=== PATIENT | female | born 1995 | race American Indian/Alaskan Native ===

== ENCOUNTER 2018-05-18 16:24 | Inpatient (IN) | payer MEDICAID ==
--- NOTE | 2018-05-18 18:35 | Ultrasound Report ---
FINAL REPORT PROCEDURE: Limited obstetrical ultrasound. TECHNIQUE: Real-time limited sonographic examination was performed for evaluation of size, position, heartbeat, fluid volume for each fetus with image documentation (1 or more fetuses). CPT 18711 HISTORY: , evaluate amniotic fluid index. COMPARISON: No prior studies are available for comparison. FINDINGS: There is a single viable fetus. Cardiac activity is demonstrated at 135 beats per minute. The amniotic fluid index measures 8.6 centimeters. IMPRESSION: 8.6 centimeter amniotic fluid index.
--- NOTE | 2018-05-18 18:36 | Ultrasound Report ---
FINAL REPORT PROCEDURE: Ultrasound biophysical profile without nonstress test. TECHNIQUE: Sonographic evaluation for breathing, movement, tone, and amniotic fluid volume was performed. CPT 78168 HISTORY: , evaluate biophysical profile. COMPARISON: No prior studies are available for comparison. FINDINGS: Amniotic fluid volume: 2. breathin. movement: 2. tone: 2. Score: 8 of 8. IMPRESSION: Normal biophysical profile.
[2018-05-18] MEDS ORDERED: LACTATED RINGERS 1,000 ML ONE (19:58)
[2018-05-18] MEDS ORDERED: BRETHINE SUB-Q PRN (20:17)
[2018-05-18] MEDS ORDERED: XYLOCAINE 2% INFILTRATI ONE (20:17)
[2018-05-18] MEDS: LACTATED RINGERS 1,000 ML IV SCH (20:28)
--- NOTE | 2018-05-18 20:35 | History and Physical Report ---
History of Present Illness Date of examination: 05/18/18 Date of admission: 05/18/18 19:26 Chief complaint: Here for induction of labor due to class 3 obesity. History of present illness: 23 year old presents to L&D for induction of labor due to obesity. Patient has received care at [facility] and co- managed with [facility]. LMP 08/17/17. EDC 05/24/18 (based on LMP and confirmed by 12 week US). EGA 39 weeks, 1 day gestation. significant for obesity, UTI (treated with Macrobid), Vitamin D deficiency (supplemented with Vitamin D), and marginal cord insertion. labs are as follows: A+, antibody screen negative, rubella immune, RPR nonreactive, hepatitis B surface antigen negative, HIV negative, hemoglobin electrophoresis normal, chlamydia negative, gonorrhea negative, HSV 2 negative, GBS negative. Past History Past Medical History: other (obesity) Past Surgical History: other (elective ) ASSESSMENT CONSULTANT History: denies: cancer, chlamydia, fibroids, gonorrhea, hepatitis B, hepatitis C, herpes, HIV, syphilis Family/Genetic History: none Social history: single, lives with family, full code. denies: smoking, alcohol abuse, prescription drug abuse, IV drug use - Obstetrical History Expected Date of Delivery: 05/24/18 Actual Gestation: 39 Week(s) 1 Day(s) : 2 Para: 0 Hx # Term Pregnancies: 0 Number of Pregnancies: 0 Spontaneous Abortions: 0 Induced : 1 Number of Living Children: 0 Medications and Allergies Allergies Allergy/AdvReac Type Severity Reaction Status Date / Time No Known Allergies Allergy Unverified 05/18/18 16:40 Home Medications Medication Instructions Recorded Confirmed Last Taken Type Pnv No.121/Iron/Folic Acid 1 tab PO QDAY 05/18/18 05/18/18 2 Days Ago History [ Multivitamin Tablet] ~05/16/18 Active Meds: Active Medications Dinoprostone (Cervidil) 10 mg VG ONCE ONE Stop: 05/18/18 21:18 Ephedrine Sulfate (Ephedrine Sulfate) 10 mg IV Q2M PRN PRN Reason: Hypotension Lactated Ringer's (Lactated Ringers) 1,000 mls @ 125 mls/hr IV DIRECT YANDEL Oxytocin/Sodium Chloride (Pitocin/Ns 20 Unit/1000ml ip) 20 units in 1,000 mls @ 125 mls/hr IV DIRECT YANDEL Lidocaine (Xylocaine 2%) 20 ml INFILTRATI ONCE ONE Stop: 05/18/18 20:18 Terbutaline Sulfate (Brethine) 0.25 mg SUB-Q ONCE PRN PRN Reason: Hyperstimulation/Hypertonicity Review of Systems All systems: negative (induction of labor for obesity) - Vital Signs Vital signs: Vital Signs Temp Pulse Resp BP 97.8 F 82 18 132/76 05/18/18 17:55 05/18/18 17:55 05/18/18 17:55 05/18/18 17:55 Temp Pulse Resp BP Pulse Ox 98.3 F 87 20 137/76 97 05/18/18 19:23 05/18/18 19:25 05/18/18 19:23 05/18/18 19:24 05/18/18 19:25 - Physical Exam Cardiovascular: Regular rate, Normal S1, Normal S2 Lungs: Positive: Clear to auscultation Abdomen: Positive: normal appearance, soft. Negative: distention, tenderness, guarding, rigidity Genitourinary (Female): Positive: normal external genitalia, normal perenium, other (Several small condyloma noted bilaterally on vulva; no ulcers, no blisters noted on careful exam with bright light upon admission) Vagina: Positive: normal moisture Uterus: Positive: enlarged. Negative: tender Anus/Rectum: Positive: normal perianal skin Extremities: Positive: normal - Obstetrical FHR: category 2 Uterine Contraction Monitor Mode: External Cervical Dilatation: 1 Cervical Effacement Percentage: 70 station: -2 Uterine Contraction Pattern: Absent Results All other labs normal. Assessment and Plan A: at 39 weeks, 1 day gestation. Obesity. GBS negative. P: Admit. Cervidil cervical ripening, followed by Pitocin induction of labor. Discussed with patient risks and benefits of Cervidil cervical ripening and Pitocin induction of labor. Patient consented to Cervidil cervical ripening and Pitocin induction of labor.
[2018-05-18] MEDS ORDERED: PITOCin/NS 20 UNIT/1000ML DRIP 20 UNITS/1,000 ML BAG IV SCH (21:00)
[2018-05-18] MEDS ORDERED: CERVIDIL VG ONE (21:17)
[2018-05-18 21:26] LABS: Hematocrit 32.2 % (30.3-42.9); Hemoglobin 10.8 gm/dl (10.1-14.3); Mean Corpuscular HGB Conc 34 % (30-34); Mean Corpuscular Hemoglobin 26 pg (28-32); Mean Corpuscular Volume 77 fl (79-97); Platelet Count 314 K/mm3 (140-440); Red Blood Count 4.16 M/mm3 (3.65-5.03); Red Cell Distribution Width 15.4 % (13.2-15.2)
[2018-05-18 22:05] LABS: Alanine Aminotransferase 18 units/L (7-56); Albumin 3.3 g/dL (3.9-5); BUN/Creatinine Ratio 15; Blood Urea Nitrogen 6 mg/dL (7-17); Calcium 8.8 mg/dL (8.4-10.2); Hemolysis Index 10
[2018-05-18 23:40] LABS: Amorphous Crystals,Urine Few; Bilirubin,Urine NEG (Negative); Blood,Urine MOD (Negative); Color,Urine Yellow (Yellow); Mucus,Urine 3+ /HPF; Urobilinogen,Urine < 2.0 mg/dL (<2.0)
[2018-05-19] MEDS: LACTATED RINGERS 1,000 ML IV SCH ×3 (04:08→13:50)
[2018-05-19] MEDS ORDERED: PITOCin/NS 30 UNIT/500ML 30 UNITS/500 ML BAG IV SCH (11:00)
--- NOTE | 2018-05-19 11:03 | Event Note ---
Date: 05/19/18 Patient received Cervidil for cervical ripening overnight. Pt. is being induced at 39 weeks, 2 days gestation due to morbid obesity. Cervidil has been removed and cervix is 3 cm dilated per RN. Pitocin orders put in; plan to start Pitocin at 11:30 AM. Continuous EFM.
--- NOTE | 2018-05-19 12:51 | Event Note ---
Date: 05/19/18 E [id number]/-1.
[2018-05-19] MEDS ORDERED: SUBLIMAZE IV PRN (13:21)
[2018-05-19] MEDS ORDERED: SUBLIMAZE ONE (13:28)
[2018-05-19] MEDS ORDERED: NARCAN 2 MG/2 ML IV PRN (14:25)
[2018-05-19] MEDS ORDERED: fentaNYL-BUPIV 2 MCG/ML-0.125% 200 MCG/100 ML BAG EPIDURAL SCH (15:00)
--- NOTE | 2018-05-19 17:11 | Procedure Note ---
OB Delivery Note - Delivery Date of Delivery: 05/19/18 Surgeon: DWIGHT CABRERA Training And Development Director: JOSIE HERRERA Estimated blood loss: other (250 cc) - Vaginal Delivery presentation: vertex Delivery position: OA Intrapartum events: mult.variable deceleratio Delivery induction: AROM Delivery monitor: external FHT, external uterine Route of delivery: vacuum extraction Indicators for instrumentation: nonreassuring FHR tracing Delivery placenta: spontaneous Delivery cord: 3 umbilical vessels Episiotomy: none Delivery laceration: none Anesthesia: epidural Delivery comments: Vacuum assisted vaginal delivery performed by Dr. Irena Cabrera of liveborn male infant weighing 7 lb. 15 oz. over intact perineum with apgars of 8/9. Patient had urge to push but was not pushing effectively. FHR tracing showed deep variable FHR decelerations. Dr. Cabrera came to patient's room to expedite delivery with Kiwi. NICU called to delivery to evaluate baby. Baby placed on maternal chest after delivery while 3 vessel cord was double clamped and cut. Baby was then taken to radiant warmer to be evaluated by NICU team. Spontaneous delivery of intact placenta and membranes by freeman mechanism. Pitocin to IV fluids after delivery of placenta. EBL 250 cc. Fundus firm and midline. No lacerations noted. Vaginal sweep negative. Sponge count correct. Sharps removed from table.
[2018-05-19] MEDS ORDERED: LANSINOH TP PRN (18:16)
[2018-05-19] MEDS ORDERED: TUCKS PAD TP PRN (18:16)
[2018-05-19] MEDS ORDERED: PHENERGAN PR PRN (18:16)
[2018-05-19] MEDS ORDERED: BENADRYL PO PRN (18:16)
[2018-05-19] MEDS ORDERED: NORCO 5/325 PO PRN (18:16)
[2018-05-19] MEDS ORDERED: SODIUM CHLORIDE FLUSH SYRINGE 10 ML IV NR (19:00)
[2018-05-19] MEDS: COLACE PO SCH (21:07)
[2018-05-19] MEDS: MOTRIN PO SCH (21:07)
[2018-05-20] MEDS: MOTRIN PO SCH ×4 (05:24→21:06)
[2018-05-20 05:57] LABS: Hematocrit 26.7 % (30.3-42.9)
[2018-05-20] MEDS ORDERED: BOOSTRIX IM ONE (06:00)
[2018-05-20] MEDS: COLACE PO SCH ×2 (10:43→22:28)
--- NOTE | 2018-05-20 14:25 | Progress Note ---
Assessment and Plan A: day 1 S/P VAVD. Anemia. P: Supplement with iron. Subjective - Subjective Date of service: 05/20/18 Principal diagnosis: day 1 S/P VAVD Interval history: day 1 S/P VAVD. Doing well. Patient reports a small amount of lochia. Patient is voiding without difficulty. she is ambulating well and tolerating a regular diet. Patient denies headache, cough, shortness of breath, chest pain, abdominal pain , leg pain, nausea or vomiting, heavy bleeding, or any other problems. Patient reports: appetite normal, voiding normally, pain well controlled, flatus , ambulating normally : doing well Objective - Vital Signs Latest vital signs: Vital Signs Temp Pulse Resp BP BP Pulse Ox 05/20/18 12:53 18 05/20/18 08:33 86 96 05/20/18 08:32 97.8 F 84 18 125/56 95 05/20/18 06:20 18 05/20/18 05:24 18 05/20/18 00:30 98.7 F 69 16 107/72 05/19/18 22:07 18 05/19/18 21:07 18 05/19/18 19:30 98.6 F 72 16 104/78 05/19/18 19:03 98.2 F 84 20 126/55 100 05/19/18 18:55 98.4 F 82 20 126/56 100 05/19/18 17:46 98 H 131/59 05/19/18 17:31 93 H 120/56 05/19/18 17:16 100 H 136/71 05/19/18 17:12 97 H 96 05/19/18 17:10 93 H 92 05/19/18 17:06 95 H 99 05/19/18 17:01 93 H 98 05/19/18 16:19 89 82 L 05/19/18 16:18 107 H 97 05/19/18 16:13 88 100 05/19/18 16:08 85 100 05/19/18 16:03 85 99 05/19/18 15:58 73 100 05/19/18 15:55 76 127/61 05/19/18 15:53 78 99 05/19/18 15:52 90 78 L 05/19/18 15:48 80 100 05/19/18 15:43 80 100 05/19/18 15:38 88 98 05/19/18 15:33 89 99 05/19/18 15:28 83 100 05/19/18 15:26 90 109/56 05/19/18 15:23 97 H 99 05/19/18 15:18 90 100 05/19/18 15:13 89 100 05/19/18 15:10 85 133/60 05/19/18 15:08 91 H 100 05/19/18 15:03 96 H 100 05/19/18 14:58 98 H 99 05/19/18 14:53 86 100 05/19/18 14:48 106 H 138/62 05/19/18 14:47 120 H 95 05/19/18 14:46 91 H 135/62 05/19/18 14:44 95 H 72 L 05/19/18 14:43 84 135/63 05/19/18 14:41 84 100 05/19/18 14:39 82 131/59 05/19/18 14:36 57 L 05/19/18 14:35 89 84 05/19/18 14:30 54 L 58 L Intake and Output 05/19/18 05/20/18 05/20/18 23:59 07:59 15:59 Intake Total 740 440 Output Total 500 Balance 240 440 Intake: Oral 200 200 Intake, Free Water 540 240 Output: Urine 500 Void 500 Other: Total, Intake Amount 200 200 Total, Output Amount 500 # Voids Void 1 Estimated Blood Loss 250 - Exam Cardiovascular: Present: Regular rate, Normal S1, Normal S2 Lungs: Present: Clear to auscultation Abdomen: Present: normal appearance, soft, normal bowel sounds. Absent: distention, tenderness, guarding, rigidity Uterus: Present: normal, firm, fundal height below umbilicus. Absent: bogginess , tenderness Extremities: Present: normal. Absent: tenderness, edema - Labs Labs: Abnormal lab results 05/20/18 Range/Units 05:41 Hgb 9.0 L (10.1-14.3) gm/dl Hct 26.7 L (30.3-42.9) %
[2018-05-20] MEDS: FEOSOL PO SCH ×2 (18:33→22:28)
[2018-05-21] MEDS: MOTRIN PO SCH ×3 (02:57→16:21)
[2018-05-21 07:09] LABS: Hematocrit 28.1 % (30.3-42.9); Hemoglobin 9.2 gm/dl (10.1-14.3); Mean Corpuscular HGB Conc 33 % (30-34); Mean Corpuscular Volume 78 fl (79-97); Platelet Count 269 K/mm3 (140-440); Red Blood Count 3.58 M/mm3 (3.65-5.03); Red Cell Distribution Width 15.4 % (13.2-15.2)
[2018-05-21 07:17] LABS: Mean Corpuscular Hemoglobin 26 pg (28-32)
[2018-05-21] MEDS: COLACE PO SCH (09:14)
--- NOTE | 2018-05-21 10:29 | Progress Note ---
Assessment and Plan - Patient Problems (1) Status post vacuum-assisted vaginal delivery Current Visit: Yes Status: Acute Plan to address problem: PPD 2 - stable Continue routine PP orders Discharge to home later today Follow up at [facility] in 6 weeks for exam (2) Anemia in puerperium, baby delivered during current episode of care Current Visit: Yes Status: Acute Plan to address problem: Asymptomatic Continue iron therapy Subjective - Subjective Date of service: 05/21/18 Principal diagnosis: PPD #2; s/p VAVD Patient reports: appetite normal, voiding normally, pain well controlled, ambulating normally, no dizzy ambulation [place]: doing well, nursing well Objective - Vital Signs Latest vital signs: Vital Signs Temp Pulse Resp BP BP Pulse Ox 05/21/18 09:13 20 05/21/18 08:41 97.9 F 80 128/61 83 L 05/21/18 00:00 98.7 F 66 18 108/68 05/20/18 18:21 18 05/20/18 16:05 96 H 100 05/20/18 16:04 98.4 F 95 H 18 126/53 100 05/20/18 12:53 18 05/20/18 11:54 98.4 F 89 18 104/46 100 Intake and Output 05/20/18 05/21/18 05/21/18 23:59 07:59 15:59 Intake Total 640 200 Output Total 3 Balance 637 200 Intake: Oral 640 200 Output: Urine 3 Void 3 Other: Total, Intake Amount 640 200 Total, Output Amount 3 # Voids Void 3 - Exam Abdomen: Present: normal appearance, soft Vulva: both: normal Uterus: Present: normal, firm, fundal height at umbilicus Comments: scant lochia - Labs Labs: Abnormal lab results 05/21/18 Range/Units 06:40 WBC 14.7 H (4.5-11.0) K/mm3 RBC 3.58 L (3.65-5.03) M/mm3 Hgb 9.2 L (10.1-14.3) gm/dl Hct 28.1 L (30.3-42.9) % MCV 78 L (79-97) fl MCH 26 L (28-32) pg RDW 15.4 H (13.2-15.2) %
--- NOTE | 2018-05-21 10:29 | Discharge Summary ---
Providers - Providers Date of Admission: 05/18/18 19:26 Date of discharge: 05/21/18 Attending physician: DAVIDSON HERNANDES MD Primary care physician: DAVIDSON HERNANDES MD Hospitalization Reason for admission: induction of labor, IUP at term Delivery: vacuum extraction Episiotomy: none Laceration: none Other procedures: none Discharge diagnosis: IUP at term delivered [place] baby: male Hospital course: Uncomplicated Condition at discharge: Stable Disposition: DC-01 TO HOME OR SELFCARE - Discharge Diagnoses (1) Status post vacuum-assisted vaginal delivery Status: Acute (2) Anemia in puerperium, baby delivered during current episode of care Status: Acute Comment: Asymptomatic Continue iron therapy Plan - Discharge Medications Prescriptions: Ferrous Sulfate [Feosol 325 MG tab] 325 mg PO BID #60 tablet - Provider Discharge Summary Activity: routine, no sex for 6 weeks, no heavy lifting 4 weeks, no strenuous exercise Diet: routine Instructions: routine Additional instructions: [] Smoking cessation referral if applicable(refer to patient education folder for contact #) [] Refer to [facility] Booklet Call your doctor immediately for: * Fever > 100.5 * Heavy vaginal bleeding ( >1 pad per hour) * Severe persistent headache * Shortness of breath * Reddened, hot, painful area to leg or breast * Drainage or odor from incision. * Keep incision clean and dry at all times and follow doctor's instructions regarding bathing/showering - Follow up plan Follow up: DAVIDSON HERNANDES MD [Primary Care Provider] - 6 Weeks (Follow up at [facility] in 6 weeks for exam/Nexplanon insertion)
[2018-05-21 16:46] VITALS: BP 106/70
== END 2018-05-21 23:11 | disposition home or self-care (01) | DRG 774 ==
LOC: TRG 16:24 → LD 19:26 → OB 05-19 19:24
PROVIDERS: ADMIT Obstetrics & Gynecology; ATTEND Obstetrics & Gynecology
PROC: 10907ZC Drainage of Amniotic Fluid, Therapeutic from Products of Conception, Via Natural or Artificial Opening (ICD-10-PCS; principal; 2018-05-19)
PROC: 10D07Z6 Extraction of Products of Conception, Vacuum, Via Natural or Artificial Opening (ICD-10-PCS; 2018-05-19)
PROC: 3E0R3BZ Introduction of Anesthetic Agent into Spinal Canal, Percutaneous Approach (ICD-10-PCS; 2018-05-19)
PROC: 00HU33Z Insertion of Infusion Device into Spinal Canal, Percutaneous Approach (ICD-10-PCS; 2018-05-19)
PROC: 3E033VJ Introduction of Other Hormone into Peripheral Vein, Percutaneous Approach (ICD-10-PCS; 2018-05-19)
PROC: 3E0P7VZ Introduction of Hormone into Female Reproductive, Via Natural or Artificial Opening (ICD-10-PCS; 2018-05-19)
DX: O99.214 Obesity complicating childbirth (principal); O75.3 Other infection during labor; O76 Abnormality in fetal heart rate and rhythm complicating labor and delivery; E66.01 Morbid (severe) obesity due to excess calories; Z3A.39 39 weeks gestation of pregnancy; O75.89 Other specified complications of labor and delivery; Z37.0 Single live birth; Z79.899 Other long term (current) drug therapy; O90.81 Anemia of the puerperium; D64.9 Anemia, unspecified; Z68.41 Body mass index [BMI] 40.0-44.9, adult
CPT/HCPCS: 36415; 59200; 76815; 76819; 80053; 81001; 85014; 85018; 85027; 86592; 86850; 86900; 86901; 87086; 90471; 90715; A6250; J2590; J3010; J7120